=== PATIENT | male | born 1975 | race Caucasian/White ===

== ENCOUNTER 2020-07-07 20:00 | Emergency (ER) | payer BC ==
[2020-07-07] MEDS ORDERED: Aspirin 81 MG Tab.Chew ONE (20:22)
[2020-07-07] MEDS ORDERED: LORazepam 1 MG Tab ONE (23:05)
[2020-07-08 04:20] LABS: BLOOD UREA NITROGEN,BUN 12 mg/dL (7.0-18.0); CARBON DIOXIDE,CO2 25.8 mmol/L (21.0-32.0); CHLORIDE,CL 103 mmol/L (98-107); GLUCOSE RANDOM 107 mg/dL (74-106); POTASSIUM,K 4.1 mmol/L (3.5-5.1); SODIUM,NA 138 mmol/L (136-148)
--- NOTE | 2020-07-08 13:01 | CR ---
INDICATION: Chest pain TECHNIQUE: Chest radiograph 1 view COMPARISON: None FINDINGS: Mediastinum: The mediastinum is normal in appearance. The heart silhouette is normal in size and morphology. Lung: Mild reticulonodular opacities present within the lung bases bilaterally. No sign of pleural effusion seen. No pneumothorax is identified. Bone and Soft tissue: Unremarkable for age. IMPRESSION: 1. Mild reticulonodular opacities present within the lung bases bilaterally. Clinical correlation is recommended to exclude aspiration, bronchiolitis, or pneumonia. Dictated by Logan Turner MD @ 07/08/2020 12:59:40 PM Dictated by: Logan Turner MD @ 07/08/2020 12:59:42 (Electronically Signed)
== END 2020-07-07 23:16 | disposition home or self-care (01) ==
LOC: MW.ED 20:00
DX: R07.89 Other chest pain (principal); I45.10 Unspecified right bundle-branch block
CPT/HCPCS: 36415; 71045; 80053; 84484; 85025; 93005; 99285; A9270

== ENCOUNTER 2023-07-29 23:12 | Emergency (ER) | payer BC, OTHER ==
[2023-07-29] MEDS: diphenhydrAMINE 50 MG/ML SDV IVPUSH ONE (23:30)
[2023-07-29] MEDS: Sodium Chloride 0.9% 1,000 ML IV ONE (23:30)
[2023-07-29] MEDS: Metoclopramide 10 MG/2 ML SDV IVPUSH ONE (23:30)
[2023-07-29 23:33] LABS: BASOPHILS ABSOLUTE AUTO 0.08 K/uL (0.00-0.20); BASOPHILS PERCENT AUTO 0.7 % (0.0-1.0); EOSINOPHILS ABSOLUTE AUTO 0.33 K/uL (0.00-0.45); EOSINOPHILS PERCENT AUTO 2.8 % (0.0-6.0); HEMATOCRIT 46.7 % (42.0-52.0); HEMOGLOBIN 16.1 g/dL (14.0-18.0); IMMATURE GRAN ABSOLUTE AUTO 0.04 K/uL (0.00-0.05); IMMATURE GRAN PERCENT AUTO 0.3 % (0.0-0.4); LYMPHOCYTES ABSOLUTE AUTO 3.98 K/uL (1.00-4.80); LYMPHOCYTES PERCENT AUTO 34.1 % (24.0-44.0); MEAN CORPUSCULAR HEMOGLOBIN 31.8 pg (28.0-32.0); MEAN CORPUSCULAR HGB CONC 34.5 g/dL (32.0-36.0); MEAN CORPUSCULAR VOLUME 92.1 fL (83.0-99.0); MEAN PLATELET VOLUME 9.5 fL (9.4-12.4); MONOCYTES PERCENT AUTO 8.6 % (0.0-8.0); NEUTROPHILS ABSOLUTE AUTO 6.24 K/uL (1.80-7.70); NEUTROPHILS PERCENT AUTO 53.5 % (41.0-71.0); PLATELET COUNT,PLT 219 K/uL (150-400); RED BLOOD CELL COUNT 5.07 M/uL (4.52-5.90); WHITE BLOOD CELL COUNT,WBC 11.67 K/uL (3.9-11.3)
[2023-07-29] MEDS: Albuterol/Ipratropium 3.0-0.5 MG/3 ML Neb Soln NEB ONE (23:37)
[2023-07-29] MEDS: Sodium Chloride 0.9% 2.5 ML Syringe FLUSH PRN (23:38)
[2023-07-29] MEDS: Sodium Chloride 0.9% 10 ML Syringe FLUSH PRN (23:38)
[2023-07-30 00:04] LABS: ALBUMIN 4.2 g/dL (3.4-5.0); BILIRUBIN TOTAL 0.2 mg/dL (0.2-1.0); CALCIUM 9.2 mg/dL (8.5-10.1); CARBON DIOXIDE,CO2 24.4 mmol/L (21.0-32.0); CREATININE 0.9 mg/dL (0.8-1.3); EST CRCL DRUG DOSING (CG) 103.64 mL/min; MAGNESIUM 1.9 mg/dL (1.8-2.4); POTASSIUM,K 4.1 mmol/L (3.5-5.1); PROTEIN TOTAL,TP 8.2 g/dL (6.4-8.2)
[2023-07-30] MEDS: Ketorolac 30 MG/ML SDV IVPUSH ONE (01:53)
== END 2023-07-30 02:01 | disposition home or self-care (01) ==
LOC: MW.ED 23:12
DX: R07.9 Chest pain, unspecified (principal); R51.9 Headache, unspecified
CPT/HCPCS: 36415; 70450; 71046; 80053; 83690; 83735; 84484; 85025; 85379; 93005; 96374; 96375; 99285; J1200; J1885; J2765; J3490; J7030; 93010; 99284; J7620-GY